=== PATIENT | male | born 1960 | race Caucasian/White ===

== ENCOUNTER 2017-05-10 06:55 | Day surgery (SDC) | payer BC ==
[2017-05-10] MEDS ORDERED: Sodium Chloride 0.9% 10 ML Syringe FLUSH PRN (07:15)
[2017-05-10] MEDS ORDERED: Lactated Ringers 1,000 ML IV SCH (07:15)
[2017-05-10] MEDS ORDERED: Midazolam 1 MG/ML 2 ML SDV IV ONE (08:30)
[2017-05-10] MEDS ORDERED: Propofol 200 MG/20 ML SDV IV ONE (08:30)
--- NOTE | 2017-05-10 09:21 | PCM.OPNOTE ---
- General Post-Op/Procedure Note Date of Surgery/Procedure: 05/10/17 Operative Procedure(s): egd with bx. c scope Findings: gastritis esophagitis sigmoid diverticulosis Pre Op Diagnosis: dysphagia. colon cancer screening Post-Op Diagnosis: gastritis. esophagitis. sigmoid diverticulosis Anesthesia Technique: MAC Primary Surgeon: Yannick Guan Anesthesia Provider: Hailee Soliz Pathology: stomach and esophagus Complications: None Condition: Good Free Text/Narrative:: see dictation
[2017-05-10 09:56] VITALS: BP 132/87
--- NOTE | 2017-05-10 13:59 | OR ---
DATE OF OPERATION: 05/10/2017 SURGEON: Yannick Guan MD PROCEDURE PERFORMED: Esophagogastroduodenoscopy and colonoscopy. PREOPERATIVE DIAGNOSIS: History of dysphagia and need for colon cancer screening. POSTOPERATIVE DIAGNOSES: Gastritis, mild esophagitis, and sigmoid diverticulosis. INDICATIONS FOR PROCEDURE: This is a 56-year-old white male who is referred for a screening colonoscopy. He also relates a history of dysphagia. He was offered and accepted an upper and lower endoscopy. DESCRIPTION OF PROCEDURE: After an excellent IV sedation was administered, the bite block was inserted. The flexible endoscope was passed without difficulty down the patient's esophagus into the stomach. The stomach was insufflated. Scope was passed through the pylorus to the second portion of the duodenum and slowly withdrawn. The following findings were noted. The duodenum was unremarkable. The stomach demonstrated some diffuse gastritis. Biopsies were taken. GE junction measured at 40 cm. There was some mild erythema noted. Biopsies were taken as well. The remainder of the esophageal exam was unremarkable. Attention was then turned to the colon. Digital rectal exam was performed. No marked abnormality was noted. Flexible colonoscope was inserted and advanced to the cecum without difficulty. The prep was excellent. The following findings were noted. On withdrawing the scope, ascending colon, unremarkable. Transverse colon, unremarkable. Descending colon, unremarkable. Sigmoid, mild diverticulosis. Rectum and anus unremarkable. The patient tolerated the procedure well, was taken to recovery room in good condition. /[id number] /TIM HARRIS
== END 2017-05-10 10:20 | disposition home or self-care (01) ==
LOC: FB.SDS 06:55
PROVIDERS: ATTEND Surgery
DX: Z12.11 Encounter for screening for malignant neoplasm of colon (principal); K29.50 Unspecified chronic gastritis without bleeding; K57.30 Diverticulosis of large intestine without perforation or abscess without bleeding; E78.5 Hyperlipidemia, unspecified; K21.9 Gastro-esophageal reflux disease without esophagitis; E66.9 Obesity, unspecified; Z79.82 Long term (current) use of aspirin; Z79.899 Other long term (current) drug therapy; Z68.30 Body mass index [BMI] 30.0-30.9, adult
CPT/HCPCS: 43239; 45378; 88305; 88342; J2250; J2704; J7120